=== PATIENT | female | born 1945 | race Caucasian/White ===

== ENCOUNTER 2017-03-31 15:00 | Outpatient (RCR) | payer MEDICARE, SELFPAY ==
--- NOTE | 2017-03-22 14:48 | HP.PTEVAL_ITS ---
Patient's Visit Information DOUG HIGGINS is a 71 year old F referred to Physical Therapy by MD TIM Castrejon with a diagnosis of BPV. Date of Evaluation: 03/22/17 Physical Therapist: Luigi Frey DPT, [place] - Visit Plan Frequency: 1x/Week Duration: 2-4 Weeks Plan: 1-2x/week for 2-4 weeks as needed for for positional monitor and treat if cotninues to be approp. Not obvious BPPV today but will treat and monitor improvements for further treat or back to doctor. - Subjective Subjective: Was having dizzy spells upon waking and moving at night, gets heart going fast and buzzing in head. Those spells last shot time. Worse in the mroning upon arising. Haven't had a spell in a while(over a month) Used to be multiple times per week. Sometimes feel like I am in a fog. Happened last Monday upon arising. L side seems worse. Is on a heart monitor now to check that out and will have sleep study. Sleep is Ok outside of short spells. Is mary jane CPAP. These spells started in December. Not employed. Activities are limtiied if really dizzy and fatigues easy and needs to sit down. No balance problems or falls. - Objective Walking and transferring I. C/S aROM WFL adn painfree. UE aROM WFL and painfree. Oculomotor exam unremarkable: no nystagmus with gaze or head shake. pursuit and saccades are normal. VOR is normal and without symptoms. - head thrust. - L hallpike, - roll test, R hallpike gave asymmetrical dizzy and pressure R ear for 20 seconds consistently. Treated with R Erasto and post Erasto instruct. - Balance Scores Functional Gait Assessment Score: 29 % Disability: 3.3400 CATSIB Score (Max score 120 seconds): 120 - Goals Goal 1:: Abolish dizzyness adn night symptoms for 5 days. Goal Time Frame: 2-4 Weeks Goal 2:: Pt feel 100% back to normal without symptoms. Goal Time Frame: 2-4 Weeks - Rehabilitation Potential Physical Therapy Diagnosis: Possible BPPV, not obvious with testing today. Rehabilitation Potential: Good - Anticipated Interventions Patient/Client Instruction: Educate patient on: Condition Other: to decrease dizzyness. Comment: Positional tests as needed adn exercises. Other: to decrease dizzy like symptoms. Thank you for the opportunity to evaluate your patient. For Medicare and Medicare HMO plans, please review the plan of care and approve it. It will need to be FAXED BACK to us at [phone] for Medicare purposes. Please let me know if there are questions or concerns regarding this plan of care. Physician Signature: Date:
--- NOTE | 2017-03-31 15:45 | HP.PTDCSUM_ITS ---
HP - PT D/C Summary It has been my pleasure to treat DOUG HIGGINS under orders from Barrera Perry MD, for the diagnosis of BPV for a total of 2 visit(s). Discharge Date: 03/31/17 Please see the following information for a summary of their discharge status. - Subjective Subjective: Last weekend had a bad day on Monday. Has not been a problem since. Is on heart monitor now. May have sleep study. - Objective Objective/Function: - B hallpike, - roll test. Oculomtoor is unremarkable and asympotmatic again with head shake, saccades, pursuit, VOR. - skew eye deviation. Convergence is OK. Balance is good today. UNUSUAL THAT THE DIZZYNESS IS GONE FOR DAYS AND DAYS AND GETS BAD ONE DAY FOR NO REASON OR POSITIONAL CHANGE. - Goals Goal 1:: Abolish dizzyness adn night symptoms for 5 days. Goal Progress: Goal Met Goal 2:: Pt feel 100% back to normal without symptoms. Goal Progress: Progressing - Plan Plan: D/C, pt to f/u with doctor - D/C Information Discharge Comments: Pt asymptomatic with all testing at [facility] with both visits. Blaalance is good. Pt does have intermittent lightheaded s symptoms but has been symptom free with normal activities for 5 days. Will f/u with doctor as scheduled. Taught pitts Daroff exercises in case symptoms return. If there are questions or concerns regarding this patient's physical therapy, please feel free to call me at [phone]. Thank you for the referral of this patient. Sincerely, Luigi Frey, DPT, OC
== END 2017-03-31 19:00 | disposition home or self-care (01) ==
LOC: PT 15:00
PROVIDERS: Family Provider Family Medicine; PCP Family Medicine; Visit Provider Psychiatry & Neurology Neurology
DX: H81.12 Benign paroxysmal vertigo, left ear (principal)
CPT/HCPCS: 97162; 97530

== ENCOUNTER → 2017-11-22 12:25 | Outpatient (CLI) | payer MEDICARE, SELFPAY ==
--- NOTE | 2017-11-22 12:28 | BI_ITS ---
MAMMOGRAPHY - BILATERAL SCREENING REASON FOR EXAM: Female, 72 years old. Routine annual screening examination. PERTINENT HISTORY: Personal history of breast cancer. Prior right lumpectomy and left excisional breast biopsy. Aunt with breast cancer. TECHNIQUE: Digital bilateral breast carlos (3D mammographic acquisition) in the CC and MLO projections. 2-D mediolateral oblique (MLO) and craniocaudad (CC) views of both breasts were obtained. CAD: Full Field Digital Mammography with Computer Added Detection was performed. COMPARISON: Comparison is made with prior study dated July 14, 2016 and July 14, 2015. FINDINGS: Breast Composition: There are scattered areas of fibroglandular density. There are no dominant masses or suspicious calcifications. Stable postoperative changes seen in the superior retroareolar region of the right breast in keeping with prior lumpectomy. A tissue clip marker is once again seen in the upper lateral portion of the left breast. Vascular calcifications. No other significant abnormalities are identified. There has been no significant change since the prior study. BI/SCREENING MAMM (CAD), BILAT IMPRESSION: Stable bilateral screening mammogram. Yearly follow-up mammogram recommended. (A) ASSESSMENT CATEGORY: BIRADS Category 2: Benign. A letter regarding these results will be sent to the patient by the facility within 30 days. Approximately 10% of breast cancers are not detected by mammography. A normal mammogram should not delay biopsy of a clinically suspicious abnormality. [id number] Electronically Signed: Silvino Garza MD at 15:33 EDT Tel [phone], Service support ,
== END ==
PROVIDERS: Family Provider Family Medicine; PCP Family Medicine; Visit Provider Obstetrics & Gynecology
DX: Z12.31 Encounter for screening mammogram for malignant neoplasm of breast (principal)
CPT/HCPCS: 77063; 77067

== ENCOUNTER → 2019-01-12 09:45 | Outpatient (CLI) | payer MEDICARE, SELFPAY ==
--- NOTE | 2019-01-12 09:49 | BI_ITS ---
MAMMOGRAPHY - BILATERAL SCREENING REASON FOR EXAM: Female, 73 years old. Routine annual screening examination. PERTINENT HISTORY: Personal history of breast cancer. Prior right lumpectomy. Prior left excisional breast biopsy. Aunt with breast cancer. TECHNIQUE: Digital bilateral breast john (3D mammographic acquisition) in the CC and MLO projections. 2-D mediolateral oblique (MLO) and craniocaudad (CC) views of both breasts were obtained. CAD: Full Field Digital Mammography with Computer Added Detection was performed. COMPARISON: Comparison is made with prior study dated November 22, 2017 and July 14, 2016. FINDINGS: Breast Composition: There are scattered areas of fibroglandular density. There are no dominant masses or suspicious calcifications. Once again, the patient is status post lumpectomy in the superior retroareolar region of the right breast with resultant postoperative changes. Stable appearance of the secretory type of calcifications. A tissue clip marker is once again seen in the upper lateral portion of the left breast. Stable benign-appearing bilateral axillary lymph nodes. No other significant abnormalities are identified. There has been no significant change since the prior study. BI/SCREEN MAMM (CAD) W/JOHN BILAT IMPRESSION: Stable bilateral screening mammogram. Yearly follow-up mammogram recommended. (A) ASSESSMENT CATEGORY: BIRADS Category 2: Benign. A letter regarding these results will be sent to the patient by the facility within 30 days. Approximately 10% of breast cancers are not detected by mammography. A normal mammogram should not delay biopsy of a clinically suspicious abnormality. [id number] Electronically Signed: Silvino Garza, at 8:46 EST , Service support ,
== END ==
PROVIDERS: Family Provider Family Medicine; PCP Family Medicine; Referring Provider Obstetrics & Gynecology; Visit Provider Obstetrics & Gynecology
DX: Z12.31 Encounter for screening mammogram for malignant neoplasm of breast (principal)
CPT/HCPCS: 77063; 77067

== ENCOUNTER → 2020-07-31 12:43 | Outpatient (CLI) | payer MEDICARE, SELFPAY ==
--- NOTE | 2020-07-31 12:46 | BI_ITS ---
MAMMOGRAPHY - BILATERAL SCREENING REASON FOR EXAM: Female, 75 years old. Routine annual screening examination. PERTINENT HISTORY: Personal history of breast cancer. Prior right lumpectomy. Remote left excisional breast biopsy. TECHNIQUE: Digital bilateral breast john (3D mammographic acquisition) in the CC and MLO projections. 2-D mediolateral oblique (MLO) and craniocaudad (CC) views of both breasts were obtained. CAD: Full Field Digital Mammography with Computer Added Detection was performed. COMPARISON: Comparison is made with prior examination dated 01/12/2019 and 11/23/2007. FINDINGS: Breast Composition: There are scattered areas of fibroglandular density. There are no dominant masses or suspicious calcifications. Once again, the patient is status post lumpectomy in the superior retroareolar region of the right breast with resultant postoperative architectural distortion. Stable secretory type calcifications in the right breast. Once again, a tissue clip marker is seen in the upper lateral portion of the left breast. Stable benign-appearing lateral axillary lymph nodes. No other significant abnormalities are identified. There has been no significant change since the prior study. BI/SCRN MAMM (CAD)W/JOHN BILAT IMPRESSION: Stable bilateral screening mammogram. Yearly follow-up mammogram recommended. (A) ASSESSMENT CATEGORY: BIRADS Category 2: Benign. A letter regarding these results will be sent to the patient by the facility within 30 days. Approximately 10% of breast cancers are not detected by mammography. A normal mammogram should not delay biopsy of a clinically suspicious abnormality. [id number] Electronically Signed: Silvino Garza MD at 13:38 EDT , Service support ,
== END ==
PROVIDERS: PCP Family Medicine; Referring Provider Obstetrics & Gynecology; Visit Provider Obstetrics & Gynecology
DX: Z12.31 Encounter for screening mammogram for malignant neoplasm of breast (principal); Z85.3 Personal history of malignant neoplasm of breast
CPT/HCPCS: 77063; 77067

== ENCOUNTER → 2021-08-05 | Outpatient (CLI) | payer MEDICARE, SELFPAY ==
--- NOTE | 2021-08-05 13:09 | BI_ITS ---
MAMMOGRAPHY - BILATERAL SCREENING REASON FOR EXAM: Female, 76 years old. Routine annual screening examination. PERTINENT HISTORY: Personal history of breast cancer. Prior right lumpectomy. Remote excisional left breast biopsy. History of aunt with breast cancer. TECHNIQUE: Digital bilateral breast john (3D mammographic acquisition) in the CC and MLO projections. 2-D mediolateral oblique (MLO) and craniocaudad (CC) views of both breasts were obtained. CAD: Full Field Digital Mammography with Computer Added Detection was performed. COMPARISON: Comparison is made with prior study dated 07/31/2020 and 01/12/2019. FINDINGS: Breast Composition: There are scattered areas of fibroglandular density. There are no dominant masses or suspicious calcifications. The patient is status post lumpectomy in the superior retroareolar region of the right breast with resultant postoperative architectural distortion and scarring. Stable secretory type calcifications in the right breast. A tissue clip marker is once again seen in the upper lateral aspect of the left breast. No other significant abnormalities are identified. There has been no significant change since the prior study. BI/SCRN MAMM (CAD)W/JOHN BILAT IMPRESSION: Stable bilateral screening mammogram. Yearly follow-up mammogram recommended. (A) ASSESSMENT CATEGORY: BIRADS Category 2: Benign. A letter regarding these results will be sent to the patient by the facility within 30 days. Approximately 10% of breast cancers are not detected by mammography. A normal mammogram should not delay biopsy of a clinically suspicious abnormality. [id number] Electronically Signed: Silvino Garza MD at 13:56 EDT ,
== END | disposition home or self-care (01) ==
LOC: OPBI 13:07
PROVIDERS: PCP Family Medicine; Referring Provider Obstetrics & Gynecology; Visit Provider Obstetrics & Gynecology
DX: Z12.31 Encounter for screening mammogram for malignant neoplasm of breast (principal); Z85.3 Personal history of malignant neoplasm of breast; Z80.3 Family history of malignant neoplasm of breast
CPT/HCPCS: 77063; 77067

== ENCOUNTER → 2022-11-23 | Outpatient (CLI) | payer MEDICARE, SELFPAY ==
--- NOTE | 2022-11-23 14:13 | NEURO_ITS ---
NCS and/or EMG Patient Report Ordering Doctor: SUHAIL QUEEN DATE OF SERVICE: 11/23/22 Chantal presents for electrodiagnostic testing of the lower limbs. She reports pain in the medial aspect of both legs, worse on the left side. It is worse with prolonged standing. She reports numbness in the left foot. Electrodiagnostic findings: Right peroneal motor nerve demonstrates prolonged distal latency with reduced amplitude and reduced conduction velocity. Left peroneal motor nerve demonstrates normal distal latency with reduced amplitude and normal conduction velocity. Tibial motor response is within normal limits bilaterally. Prolonged tibial F wave bilaterally. Prolonged left peroneal F- wave. Absent right peroneal left F?wave. Prolonged H-reflex bilaterally. Absent left sural response. Normal superficial peroneal latency bilaterally. Needle EMG testing was performed in the lower limbs. All muscles tested showed no evidence of denervation with normal motor unit action potentials. Electrodiagnostic Impression: This is an abnormal study. 1) Findings suggestive of peripheral polyneuropathy, with evidence of axonal loss and demyelinating features. 2) No EMG evidence for lumbosacral radiculopathy. Multi Select Codes Neurology Neurology Interp Codes: 29335-26 Musc test done w/n test comp (interp) (2) and 99749-61 Nr cndj test 11-12 studies (interp)
== END | disposition home or self-care (01) ==
LOC: PSN 12:17
PROVIDERS: PCP Family Medicine; Referring Provider Psychiatry & Neurology Neurology; Visit Provider Psychiatry & Neurology Neurology
DX: M79.661 Pain in right lower leg (principal); M79.662 Pain in left lower leg
CPT/HCPCS: 95886; 95912

== ENCOUNTER 2022-12-28 11:08 | Outpatient (CLI) | payer MEDICARE, SELFPAY ==
--- NOTE | 2022-12-28 11:14 | ART_ITS ---
Reason For Study: Pain Procedure A bilateral lower extremity continuous wave Doppler with analog waveform analysis,segmental pressures,and ankle brachial indexes with exercise. Left Segmental Pressures Left brachial= 149mmHg. Left posterior tibial artery = 232mmHg. Left dorsalis pedis artery = 185mmHg. Left digit = 88 mmHg. Right Segmental Pressures Right brachial= 149mmHg. Right posterior tibial artery = 216mmHg. Right dorsalis pedis artery = 177mmHg. Right digit = 114 mmHg. Indices The right ankle brachial index by the posterior tibial artery is 1.45. The right ankle brachial index by the dorsalis pedis is 1.19. The right digital-brachial index is 0.77. The right post exercise ankle brachial index is 1.24. The left ankle brachial index by the posterior tibial artery is 1.56. The left ankle brachial index by the dorsalis pedis is 1.24. The left digital-brachial index is 0.59. The left post exercise ankle brachial index is 0.87. VL/Lower Ext Art Exam w/ Exercise Interpretation Summary Right ALTHEA 1.45, artificially. Doppler/PVR waveforms of the right leg normal at rest. Right lower extremity exhibits normal response to exercise. Left ALTHEA 1.56, artificially elevated. Doppler/PVR waveforms of the left leg nor mal at rest. Left lower extremity with abnormal response to exercise and post exercise ALTHEA i n the moderate category. Ordering Physician: SUHAIL QUEEN Referring Physician: SUHAIL QUEEN Performed By: Tammy Serna RDCS/RVT
--- NOTE | 2022-12-28 13:38 | BI_ITS ---
MAMMOGRAPHY - BILATERAL SCREENING REASON FOR EXAM: Female, 77 years old. Routine annual screening examination. PERTINENT HISTORY: Personal history of breast cancer. Prior right lumpectomy and radiation. Remote left excisional breast biopsy. Aunt with breast cancer. TECHNIQUE: Digital bilateral breast john (3D mammographic acquisition) in the CC and MLO projections. 2-D mediolateral oblique (MLO) and craniocaudad (CC) views of both breasts were obtained. CAD: Full Field Digital Mammography with Computer Added Detection was performed. COMPARISON: Comparison is made with prior study dated August 05, 2021. FINDINGS: Breast Composition: There are scattered areas of fibroglandular density. There are no dominant masses or suspicious calcifications. Once again, the patient is status post lumpectomy in the superior retroareolar region of the right breast with resultant postoperative architectural distortion and scarring. Stable secretory type of calcifications in the right breast. A tissue clip marker is once again seen in the upper lateral aspect of the left breast. Stable benign-appearing bilateral axillary lymph nodes. No other significant abnormalities are identified. There has been no significant change since the prior study. BI/SCRN MAMM (CAD)W/JOHN BILAT IMPRESSION: Stable bilateral screening mammogram. Yearly follow-up mammogram recommended. (A) ASSESSMENT CATEGORY: BIRADS Category 2: Benign. A letter regarding these results will be sent to the patient by the facility within 30 days. Approximately 10% of breast cancers are not detected by mammography. A normal mammogram should not delay biopsy of a clinically suspicious abnormality. [id number] Electronically Signed: Silvino Garza MD at 14:30 EDT ,
== END 2022-12-28 23:59 | disposition home or self-care (01) ==
PROVIDERS: PCP Family Medicine; Referring Provider Psychiatry & Neurology Neurology; Visit Provider Family Medicine
DX: Z12.31 Encounter for screening mammogram for malignant neoplasm of breast (principal); M79.606 Pain in leg, unspecified
CPT/HCPCS: 77063; 77067; 93923; 93924

== ENCOUNTER → 2024-01-09 | Outpatient (CLI) | payer MEDICARE, SELFPAY ==
--- NOTE | 2024-01-09 13:38 | BI_ITS ---
MAMMOGRAPHY - BILATERAL SCREENING REASON FOR EXAM: Female, 78 years old. Routine annual screening examination. PERTINENT HISTORY: Personal history of breast cancer. Prior right lumpectomy with radiation. Remote left excisional breast biopsy. Aunt with breast cancer. TECHNIQUE: Digital bilateral breast john (3D mammographic acquisition) in the CC and MLO projections. 2-D mediolateral oblique (MLO) and craniocaudad (CC) views of both breasts were obtained. CAD: Full Field Digital Mammography with Computer Added Detection was performed. COMPARISON: Comparison is made with prior study dated December 28, 2022 and August 05, 2021. FINDINGS: Breast Composition: There are scattered areas of fibroglandular density. There are no dominant masses or suspicious calcifications. Once again, the patient is status post lumpectomy in the superior retroareolar region of the right breast with resultant postoperative architectural distortion and scarring. Stable dystrophic calcification at the biopsy site. A tissue clip marker is seen in the upper lateral aspect of the left breast. No other significant abnormalities are identified. There has been no significant change since the prior study. BI/SCRN MAMM (CAD)W/JOHN BILAT IMPRESSION: Stable bilateral screening mammogram. Yearly follow-up mammogram recommended. (A) ASSESSMENT CATEGORY: BIRADS Category 2: Benign. A letter regarding these results will be sent to the patient by the facility within 30 days. Approximately 10% of breast cancers are not detected by mammography. A normal mammogram should not delay biopsy of a clinically suspicious abnormality. [id number] Electronically Signed: Silvino Garza MD at 14:31 EST ,
== END | disposition home or self-care (01) ==
LOC: OPBI 13:36
PROVIDERS: PCP Family Medicine; Referring Provider Family Medicine; Visit Provider Family Medicine
DX: Z12.31 Encounter for screening mammogram for malignant neoplasm of breast (principal)
CPT/HCPCS: 77063; 77067

== ENCOUNTER → 2025-01-27 | Outpatient (CLI) | payer MEDICARE, SELFPAY ==
--- NOTE | 2025-01-27 10:08 | BI_ITS ---
EXAM: SCRN MAMM (CAD)W/JOHN BILAT DATE: 01/27/2025 CLINICAL HISTORY: F, Age 79 y/o , SCREENING TECHNIQUE: Procedure Code: [id number] Modality: MG Procedure: SCRN MAMM (CAD)W/JOHN BILAT COMPARISON: Prior exam(s) dated 01/09/2024, 12/28/2022, and 08/05/2021. FINDINGS: TISSUE DENSITY: There are scattered areas of fibroglandular density. Bilateral Breast Mammographic Findings: There are clusters of benign-appearing round and punctate calcifications in the right breast which are similar when compared to the prior studies. They appear to represent probable fibrocystic type calcifications or degenerating fibroadenomas. Benign-appearing round microcalcifications, macrocalcifications and vascular calcifications are seen in the right breast. Benign secretory type calcifications, round microcalcifications and vascular calcifications are seen in the left breast. There are no suspicious masses, suspicious cluster of microcalcifications, architectural distortion or secondary signs of malignancy identified in either breast. BI/SCRN MAMM (CAD)W/JOHN BILAT IMPRESSION: Benign screening mammogram. OVERALL FINAL ASSESSMENT BI-RADS 2: BENIGN RECOMMENDATION: Routine annual follow-up in 1 Year Additional Recommendation none A letter with findings and recommendations will be mailed to the patient. Reading Location: [id number]
== END | disposition home or self-care (01) ==
LOC: OPBI 10:07
PROVIDERS: PCP Family Medicine; Referring Provider Family Medicine; Visit Provider Family Medicine
DX: Z12.31 Encounter for screening mammogram for malignant neoplasm of breast (principal)
CPT/HCPCS: 77063; 77067